=== PATIENT | female | born 1990 | race Caucasian/White ===

== ENCOUNTER 2017-11-12 07:43 | Inpatient (IN) | payer OTHER ==
[~2017-11-12] VITALS: Ht 165.1 cm; Wt 65.9 kg
[2017-11-12 08:42] VITALS: Ht 165.1 cm; Wt 65.9 kg
[2017-11-12] MEDS ORDERED: LACTATED RINGER'S 1000ML 500 ML IV PRN ×2 (09:01→18:24)
[2017-11-12] MEDS ORDERED: LACTATED RINGER'S 1000ML 1,000 ML IV PRN (09:01)
[2017-11-12] MEDS ORDERED: OXYTOCIN 30 UNITS/500ML NSS IV PRN ×2 (09:15→18:00)
[2017-11-12 09:25] LABS: HEMATOCRIT 36.5 % (37-47); MEAN CELL VOLUME 90.1 fL (80-100); MEAN CORPUSCULAR HEMOGLOBIN 29.4 pg (25-34); MEAN CORPUSCULAR HGB CONC 32.6 g/dl (32-36); MEAN PLATELET VOLUME 9.7 fL (7.4-10.4); PLATELET COUNT 208 K/uL (130-400); RED BLOOD COUNT 4.05 M/uL (4.2-5.4); WHITE BLOOD COUNT 9.64 K/uL (4.8-10.8)
[2017-11-12] MEDS ORDERED: DOXY30TA (09:30)
[2017-11-12] MEDS ORDERED: PRENTAB26 PO (09:30)
[2017-11-12] MEDS: LACTATED RINGER'S 1000ML 1,000 ML IV SCH ×2 (10:09→16:40)
[2017-11-12] MEDS ORDERED: FENTANYL 2MCG/ML ROPIV 1.25MG/ML 100ML BAG EPI ONE (14:54)
[2017-11-12] MEDS ORDERED: EpHEDrine SULFATE INJ 50 MG/ML AMP ONE (14:54)
[2017-11-12] MEDS ORDERED: BUPIVACAINE 0.25% 30 ML VIAL ONE (14:54)
[2017-11-12] MEDS ORDERED: FENTANYL CITRATE INJ 50 MCG/1 ML 2 ML VIAL ONE (14:55)
[2017-11-12] MEDS ORDERED: METHYLERGONOVINE MALEATE 0.2 MG/ML AMP ONE (17:43)
[2017-11-12] MEDS ORDERED: SUPERCREAM 0.870 % 15GM JAR EXT PRN (18:00)
[2017-11-12] MEDS ORDERED: LANOLIN OINT EXT PRN ×2 (18:00)
[2017-11-12] MEDS ORDERED: METHYLERGONOVINE MALEATE 0.2 MG/ML AMP IM ONE (18:00)
[2017-11-12] MEDS ORDERED: DIPHTHERIA/TETANUS/PERTUSSIS 0.5 ML SYR/VIAL IM. ONE (18:00)
[2017-11-12] MEDS ORDERED: HYDROCORTISONE ACETATE 25 MG SUPP PR PRN (18:00)
[2017-11-12] MEDS ORDERED: ACETAMINOPHEN 325 MG TAB PO PRN (18:00)
[2017-11-12] MEDS ORDERED: BENZOCAINE 20% AER SPR 82.5 GM CAN EXT PRN (18:00)
[2017-11-12] MEDS ORDERED: OXYCODONE/ACETAMINOPHEN 5-325 TAB PO PRN (18:00)
[2017-11-12] MEDS ORDERED: NALOXONE HCL INJ 1 MG in SODIUM CHLORIDE 0.9% 1000ML 1,000 ML IV PRN (18:24)
--- NOTE | 2017-11-12 18:27 | Anesthesia Procedure Note ---
Anesthesia Epidural Removal Nt Date & Time Nov 12, 2017 at 18:26 Vital Signs Pain Intensity: 9.0 Notes Mental Status: alert / awake / arousable, participated in evaluation Nausea / Vomiting: adequately controlled Pain: adequately controlled Airway Patency, RR, SpO2: stable & adequate BP & HR: stable & adequate Hydration State: stable & adequate Neuraxial Anesthesia: was administered Anesthetic Complications: no major complications apparent, pt satisfied with anesthetic care Epidural: removed without complications, with tip intact
[2017-11-12] MEDS ORDERED: ONDANSETRON INJ 2 MG/ML 2 ML VIAL IV PRN (18:30)
[2017-11-12] MEDS ORDERED: NALOXONE HCL INJ 0.4 MG/1 ML VIAL/CARP IV PRN (18:30)
[2017-11-12] MEDS ORDERED: NALBUPHINE HCL INJ 10 MG/ML AMP IV PRN (18:30)
[2017-11-12] MEDS ORDERED: EpHEDrine SULFATE INJ 50 MG/ML AMP IV PRN (18:30)
[2017-11-12] MEDS ORDERED: FENTANYL 2MCG/ML ROPIV 1.25MG/ML 100ML BAG EPI PRN (18:30)
[2017-11-12] MEDS ORDERED: DiphenhydrAMINE HCL 50 MG/ML VIAL IV PRN (18:30)
[2017-11-12 21:15] VITALS: BP 105/71; PULSE 97; TEMP 36.8
[2017-11-12] MEDS: IBUPROFEN 600 MG TAB PO PRN (23:10)
[2017-11-12 23:20] VITALS: BP 99/66; PULSE 68; TEMP 36.7
--- NOTE | 2017-11-13 02:37 | DELIVERY SUMMARY ---
DATE OF OPERATION: 11/12/2017 TIME OF DELIVERY: 17:39 DELIVERY OF PLACENTA: 17:41 DELIVERY NOTE: The patient is a 27-year-old 1 para 0 at 40 weeks and 4 days gestation, who was admitted to labor and delivery on the morning of 11/12/2017, for a scheduled induction of labor secondary to being postdates and gestational diabetes class A1. Her blood sugars were well controlled throughout her . On arrival, she was found to be 4 cm, 80% effaced and -1 station. heart tones were category 1. Oxytocin was begun per protocol for labor induction. She received an epidural for anesthesia. Artificial rupture of membranes was performed at 16:37 with clear amniotic fluid. She reached complete dilation at 16:02. The patient pushed to delivery at 17:39, she delivered a viable male infant to a midline episiotomy in the right occiput anterior position. The baby was placed on patient's abdomen. Cord was clamped x2 and cut. Apgars were 9 at one minute and 10 at five minutes. Please see nursing notes for further baby assessment. Cord blood was then obtained and an intact placenta with 3-vessel cord was delivered at 17:41 and sent to Pathology for examination. Oxytocin infusion was then begun. The lower uterine segment and vagina were cleared of any blood clots and debris. She was given 0.2 mg of Methergine due to uterine atony. Once there was good uterine tone, exploration of perineum noted a midline episiotomy which was repaired with 2-0 and 3-0 Vicryl sutures in a normal fashion. Excellent hemostasis was noted. No other lacerations were seen. ESTIMATED BLOOD LOSS: 400 mL. All sponge and instrument counts were found to be correct x2. Both patient and baby tolerated the delivery well and were in Recovery with stable vital signs. I attest to the content of the Intraoperative Record and any orders documented therein. Any exception s are noted below.
[2017-11-13 05:20] VITALS: BP 114/68; PULSE 84; TEMP 36.8
[2017-11-13 07:22] LABS: HEMATOCRIT 33.8 % (37-47)
[2017-11-13 07:25] VITALS: BP 93/60; PULSE 96; TEMP 36.5; O2SAT 98
[2017-11-13] MEDS: IBUPROFEN 600 MG TAB PO PRN ×2 (07:38→20:49)
[2017-11-13] MEDS: DOCUSATE SODIUM 100 MG CAP PO SCH ×2 (07:38→19:44)
[2017-11-13] MEDS: PRENATAL VITAMIN TAB PO SCH (07:38)
[2017-11-13] MEDS: FERROUS SULFATE 325 MG TAB PO SCH (07:38)
--- NOTE | 2017-11-13 08:03 | OB/GYN Progress Note ---
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 Patient is seen and examined. She feels well, no complaints. Ambulating without dizziness Voiding without difficulty Tolerating regular diet with out N&V Bleeding is minimal No fever/ chills/ CP/ SOB/ N&V/ Leg pain Breast feeding without problems Date Time Temp Pulse Resp B/P (MAP) Pulse Ox O2 Delivery O2 Flow Rate FiO2 11/13/17 05:20 36.8 84 18 114/68 (83) Room Air 11/12/17 23:20 Room Air 11/12/17 23:20 36.7 68 18 99/66 (77) Room Air 11/12/17 21:15 36.8 97 18 105/71 (82) Room Air 11/12/17 21:15 Room Air Last 24 Hours Test 11/12/17 09:16 11/13/17 07:08 White Blood Count 9.64 K/uL Red Blood Count 4.05 M/uL Hemoglobin 11.9 g/dL 11.3 g/dL Hematocrit 36.5 % 33.8 % Mean Corpuscular Volume 90.1 fL Mean Corpuscular Hemoglobin 29.4 pg Mean Corpuscular Hemoglobin Concent 32.6 g/dl RDW Standard Deviation 47.6 fL RDW Coefficient of Variation 14.3 % Platelet Count 208 K/uL Mean Platelet Volume 9.7 fL PE: General: Alert, orientedx3, NAD Abd: soft, NT, fundus firm, below Umbilicus Perineum intact, Lochia rubra minimal Ext; NT, no edema AP: 27 yo s/p , ppd# 1 VSS Afebrile doing well Continue routine care All questions were answered D/C home tomorrow
[2017-11-13] MEDS ORDERED: MAGNESIUM HYDROXIDE SUSP 30 ML UDC PO ONE (08:15)
[2017-11-13 13:00] VITALS: BP 101/69; PULSE 94; TEMP 36.6; O2SAT 98
[2017-11-13 15:45] VITALS: BP 111/75; PULSE 82; TEMP 36.7; O2SAT 99
[2017-11-13] MEDS ORDERED: BISACODYL 5 MG TABEC PO SCH (20:00)
[2017-11-14] VITALS: BP 100/63; PULSE 79; TEMP 36.6
[2017-11-14 06:54] LABS: HEMATOCRIT 32.1 % (37-47); MEAN CELL VOLUME 91.2 fL (80-100); MEAN CORPUSCULAR HEMOGLOBIN 30.1 pg (25-34); MEAN PLATELET VOLUME 9.6 fL (7.4-10.4); PLATELET COUNT 203 K/uL (130-400); RED BLOOD COUNT 3.52 M/uL (4.2-5.4); WHITE BLOOD COUNT 13.64 K/uL (4.8-10.8)
[2017-11-14] MEDS ORDERED: BISACODYL 10 MG SUPP PR PRN (07:00)
[2017-11-14] MEDS ORDERED: MTR600X PO (07:09)
[2017-11-14] MEDS ORDERED: OXYC-57 PO (07:09)
--- NOTE | 2017-11-14 07:11 | Discharge Instructions ---
Discharge Instructions Date of Service Nov 14, 2017. Admission Reason for Admission: Induction Discharge Discharge Diagnosis / Problem: Vaginal Delivery Discharge Goals Goal(s): Routine recovery after delivery Medications Continue Dispensed Medications: supercream, dermaplast, tucks, lansinoh Activity Recommendations Activity Limitations: per Instructions/Follow-up section . Instructions / Follow-Up Instructions / Follow-Up ACTIVITY RECOMMENDATIONS: * Gradual return to full activity over the next 2-3 weeks. * No lifting - nothing heavier than baby over the next 2-3 weeks. * Do not engage in vigorous exercise, sexual activity or sports until cleared by your physician. * Do not drive or operate any motorized equipment until cleared by your physician. * You may shower/bathe daily. BREAST CARE: If you are not breast feeding: * Wear a supportive bra 24 hours a day for one to two weeks. * Avoid stimulating your breasts and nipples as much as possible during the first few weeks after delivery. * When taking a shower, have the warm water hit your back, not breasts. * When your breasts feel full, apply ice packs. Usually three to four times a day helps ease the discomfort. * Take a mild pain medication (Tylenol/Motrin) when you are uncomfortable. If breast feeding: * Use breast milk to lubricate nipples. Lansinoh cream may be used for sore nipples. You do not need to remove cream prior to breast feeding. If using a different brand of cream, check the label for directions regarding removal of cream prior to nursing. * Wear a supportive bra. * If having problems with breasts or breast feeding, call a cassandra consultant or your health care provider. EPISIOTOMY CARE: After delivery, if you have an episiotomy (stitches), the following steps will ease discomfort and aid healing. * For the first 24 hours after delivery, place ice packs next to your episiotomy to help reduce swelling. * After the first 24 hour-period, sitz baths, either portable or in the tub, are suggested. A shower with a shower arm sprayed over the episiotomy may be comforting. * Radha care should be done after each voiding and bowel movement. Squirt warm water from a plastic bottle over the perineum (region of the body between the anus and urinary opening) and pat dry. * Use Dermoplast to ease discomfort. Shake container. [place] directly over the episiotomy. * Place a Tucks on a clean sanitary pad next to your episiotomy. OVER THE COUNTER MEDICATION: * For discomfort or pain, you may use Acetaminophen (Tylenol), Ibuprofen (Advil ), or Naproxen (Aleve) following the package directions. * For constipation you may use Colace following the package directions. SPECIAL CARE INSTRUCTIONS: When you are discharged from the hospital, it is important for you to follow the instructions listed below: * During the first week at home, you should be able to care for yourself and your baby. In addition, the usual light household activities are encouraged. * Limit your activities to the way you feel. Do not try to clean the house or move furniture. Be sensible. * If you actively engage in sports and have done so up until the time of your delivery, you may resume these activities as soon as you feel able. This may take up to one month or even longer. Use good judgment. * Continue to take your vitamins for at least six weeks after the of your baby. * Your diet need not be limited unless you were on a special diet before your delivery. Breast-feeding mothers need around 2500 calories per day and at least 64-80 ounces of fluid per day (8 to 10 glasses). * You should eat foods from the four major food groups. Crash diets or fad diets are to be avoided. Eating lean meats, fresh fruits and vegetables, low-fat dairy products, high fiber foods and a regular exercise program, will help you get back to your pre- weight without putting your health at risk. * Constipation is sometimes a problem after delivery. Take a mild laxative as needed. If breast feeding, Milk of Magnesia is acceptable to use. You may use a suppository or Fleets enema if no episiotomy. * A daily shower or tub bath is suggested. Be sure to thoroughly and gently dry the perineum. * A bloody vaginal discharge will usually continue until around four weeks post . A small amount of bleeding may continue for as long as six weeks. Vaginal discharge changes from the bright red bleeding after delivery to pink then brownish and finally yellowish-pink before becoming white and disappearing. * Bleeding may increase with activity. Your first period may come in 4-8 weeks. If you are breast feeding, your period may be delayed even longer. * [place] (sex) can begin whenever both you and your partner feel comfortable and do not have any form of genital infection. It is recommended that you wait until after your return appointment and discuss with your physician. If you have questions, please talk to your health care practitioner. A condom should be used to prevent infection and . * Foreplay, gentle intercourse and lubrication is very important the first several times to prevent pain. A water-based lubricant such as K-Y jelly or Astroglide may be used. * Tampons may be used six weeks after delivery. * Douching should be avoided for 6 weeks after delivery. * If you have RH negative blood and your baby is RH positive, you will receive RHOGAM by injection prior to discharge. The nurse will give you a card to keep with you that has the date and place that you received RHOGAM after delivery. * During your care, you had a Rubella screen done to check for the presence of rubella antibodies in your blood. If your test was negative, you will receive a Rubella vaccine prior to discharge. This vaccine may cause a fever, soreness at the injection site and flu-like symptoms. If these symptoms persist, notify your health care practitioner. is not advised for three months after a Rubella vaccine. There is a higher chance of having a baby with defects if conceived within three months of getting the vaccine. * If you were discharged 24 hours from delivery or before 48 hours: Visiting nurses will come to your home 48 hours after discharge to assess you and your baby. The visiting nurse will meet with you while you are in the hospital to arrange a time and get directions to your home. * Verbalizes understanding of car seat law as reviewed with patient nursing. * Car Seat hand-out given and reviewed with patient by nursing. * Shaken baby information reviewed with patient by nursing. Call you doctor if: * Heavy bleeding (saturating several pads an hour) or passing clots the size of your fist. * A fever >101 degrees F (38.3 degrees C) on two occasions four hours apart and/or chills. * Unusual pain in the pelvic or vaginal areas. * "Baby Blues" lasting longer than two weeks. If you have any questions or concerns, call your health care practitioner at . FOLLOW-UP VISIT: * Please call the office at to schedule a 6 week examination. It is important you keep this appointment. * It is important for you to make arrangements for either yearly or twice yearly check-ups thereafter. Current Hospital Diet Patient's current hospital diet: Vegetarian Diet Discharge Diet Recommended Diet: Regular OB Diet Pending Studies Studies pending at discharge: no Medical Emergencies . Who to Call and When: Medical Emergencies: If at any time you feel your situation is an emergency, please call 911 immediately. . Non-Emergent Contact Non-Emergency issues call your: Primary Care Provider, Underground [employer] Superintendent . . "Provider Documentation" section prepared by Car Toscano. . VTE Core Measure Inpt VTE Proph given/why not?: Treatment not indicated
--- NOTE | 2017-11-14 07:18 | OB/GYN Progress Note ---
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 Subjective conversation w/ patient, physical exam Ambulation: ambulating normally Voiding: no voiding problems Passing Gas: Yes Diet Tolerance: Regular Diet Lochia: Small Feeding Type: Breast Feeding Pain: 7/10 Notes: Doing well. Pain is tolerable. Tolerating regular diet. Ambulating without difficulty. Lochia moderate. Would like to go home today. Objective Vital Signs Date Time Temp Pulse Resp B/P (MAP) Pulse Ox O2 Delivery O2 Flow Rate FiO2 11/14/17 00:00 Room Air 11/14/17 00:00 36.6 79 18 100/63 (75) Room Air 11/13/17 15:45 36.7 82 18 111/75 (87) 99 Room Air 11/13/17 15:45 99 Room Air 11/13/17 13:00 36.6 94 20 101/69 (80) 98 Room Air 11/13/17 07:25 36.5 96 16 93/60 (71) 98 Room Air 11/13/17 07:25 98 Room Air Physical Exam General Appearance: WELL-APPEARING Respiratory/Chest: chest non-tender, lungs clear Cardiovascular: regular rate, rhythm Abdomen: normal bowel sounds, soft Fundus: Firm Extremities: normal range of motion, non-tender, no calf tenderness Laboratory Results Last 24 Hours Test 11/14/17 06:34 White Blood Count 13.64 K/uL Red Blood Count 3.52 M/uL Hemoglobin 10.6 g/dL Hematocrit 32.1 % Mean Corpuscular Volume 91.2 fL Mean Corpuscular Hemoglobin 30.1 pg Mean Corpuscular Hemoglobin Concent 33.0 g/dl RDW Standard Deviation 49.0 fL RDW Coefficient of Variation 14.7 % Platelet Count 203 K/uL Mean Platelet Volume 9.6 fL Assessment and Plan Post- Day Number: 2 Continue Routine Care: -D/C home today -F/U in 6 weeks.
[2017-11-14 07:45] VITALS: BP 109/78; PULSE 76; TEMP 36.6; O2SAT 98
[2017-11-14] MEDS: IBUPROFEN 600 MG TAB PO PRN ×2 (08:21→12:14)
[2017-11-14] MEDS: FERROUS SULFATE 325 MG TAB PO SCH (08:21)
[2017-11-14] MEDS: DOCUSATE SODIUM 100 MG CAP PO SCH (08:22)
[2017-11-14] MEDS: PRENATAL VITAMIN TAB PO SCH (08:22)
[2017-11-14 12:40] VITALS: BP_DIAS 78; PULSE 76; TEMP 36.6
== END 2017-11-14 12:40 | disposition home or self-care (01) | DRG 775 ==
LOC: C.LD 07:43 → C.OBG 21:02
PROVIDERS: ADMIT Obstetrics & Gynecology; ATTEND Obstetrics & Gynecology
PROC: 10E0XZZ Delivery of Products of Conception, External Approach (ICD-10-PCS; principal; 2017-11-12)
PROC: 0W8NXZZ Division of Female Perineum, External Approach (ICD-10-PCS; principal; 2017-11-12)
PROC: 3E053VJ Introduction of Other Hormone into Peripheral Artery, Percutaneous Approach (ICD-10-PCS; 2017-11-12)
DX: O24.429 Gestational diabetes mellitus in childbirth, unspecified control (principal); Z3A.40 40 weeks gestation of pregnancy; O48.0 Post-term pregnancy; O75.89 Other specified complications of labor and delivery; Z37.0 Single live birth

== ENCOUNTER 2017-12-18 20:37 | Emergency (ER) | payer OTHER ==
[~2017-12-18] VITALS: Ht 165.1 cm; Wt 57.7 kg
[~2017-12-18 20:37] MED LIST: MTR600X PO; OXYC-57 PO; PRENTAB26 PO
[2017-12-18 20:49] VITALS: Ht 165.1 cm; Wt 57.7 kg
[2017-12-18] MEDS ORDERED: ONDANSETRON INJ 2 MG/ML 2 ML VIAL IV STA (22:53)
[2017-12-18] MEDS ORDERED: SODIUM CHLORIDE 0.9% 1000ML 1,000 ML IV ONE (23:00)
[2017-12-18] MEDS ORDERED: DOCU100C PO (23:18)
[2017-12-18] MEDS ORDERED: FENU1CAP2 PO (23:18)
[2017-12-18 23:26] LABS: BASO % 0.1 %; BASO ABS # 0.01 K/uL (0-0.2); EOS % 0.9 %; HEMATOCRIT 47.3 % (37-47); IG# 0.02 K/uL (0.00-0.02); LYMPH % 8.9 %; LYMPH ABS # 1.02 K/uL (1.2-3.4); MEAN CELL VOLUME 88.6 fL (80-100); MEAN CORPUSCULAR HGB CONC 33.8 g/dl (32-36); MEAN PLATELET VOLUME 9.9 fL (7.4-10.4); MONO % 2.1 %; MONO ABS # 0.24 K/uL (0.11-0.59); NEUT % 87.8 %; NEUT ABS # 10.07 K/uL (1.4-6.5); PLATELET COUNT 184 K/uL (130-400); WHITE BLOOD COUNT 11.46 K/uL (4.8-10.8)
[2017-12-18 23:43] LABS: ALBUMIN 4.7 gm/dl (3.4-5.0); CALCIUM 9.3 mg/dl (8.5-10.1); CREATININE 0.9 mg/dl (0.60-1.20); POTASSIUM 4.2 mmol/L (3.5-5.1)
[2017-12-18 23:45] LABS: TOTAL PROTEIN 8.9 gm/dl (6.4-8.2)
[2017-12-19] MEDS ORDERED: ONDA4TAB10 SL (02:09)
[2017-12-19] MEDS ORDERED: ONDANSETRON HOME PACK 4MG OD TAB PO ONE (02:15)
[2017-12-19 02:18] VITALS: BP 128/82; PULSE 93; TEMP 36.8; O2SAT 96
--- NOTE | 2017-12-20 05:13 | EMERGENCY ROOM VISIT NOTE ---
History First contact with patient: 22:43 Chief Complaint: VOMITING Stated Complaint: THROWING UP Nursing Triage Summary: Patient reports vomiting and diarrhea since 1700 this evening. History of Present Illness The patient is a 27 year old female who presents to the Emergency Room with complaints of vomiting 7 episodes with diarrhea times one episode over the past 6 hours. The patient considers herself usually healthy without known exposure to disease. She does not have recent travel history, and believes that she may have food poisoning. She has not had fever, chills, chest pain, chest tightness, or shortness of breath. She has minimal abdominal cramping with the vomiting. She denies chance of as she gave just over 1 month ago and is breast-feeding. She has not returned to menses. She rates her overall discomfort a 4/10. Review of Systems More than 10 systems were reviewed and otherwise negative with the exception of history of present illness. Past Medical/Surgical History Medical Problems: (1) GDM, class A1 (2) Post-dates Family History No pertinent family history Social History Smoking Status: Never Smoker Housing Status: lives with family Current/Historical Medications Scheduled Docusate Sodium (Stool Softener), 100 MG PO DAILY Fenugreek (Trigonella Foenum-G (Fenugreek), 610 MG PO DAILY Multivit/Min/Iron/Fol Ac/Pren ( Vitamin), 1 TAB PO DAILY Ondasetron Odt (Zofran Odt), 4 MG SL Q6H Physical Exam Vital Signs Date Time Temp Pulse Resp B/P (MAP) Pulse Ox O2 Delivery O2 Flow Rate FiO2 12/19/17 02:18 36.8 93 18 128/82 96 12/19/17 01:06 84 18 105/75 96 Room Air 12/19/17 00:21 81 17 95 Room Air 12/18/17 23:15 74 19 99/69 93 Room Air 12/18/17 20:49 36.8 115 18 103/70 97 Room Air Physical Exam VITALS: Vitals are noted on the nurse's note and reviewed by myself. Vital signs stable. GENERAL: White female who is actively vomiting into an emesis bag on my arrival to the room MOUTH: Mucous membranes moist. Tonsils are not enlarged. Pharynx without erythema, blood, or exudate. Uvula midline. Airway patent. NECK: Supple without nuchal rigidity. No lymphadenopathy. No thyromegaly. Cervical spine is nontender. HEART: Regular rate and rhythm without murmurs gallops or rubs. LUNGS: Clear to auscultation bilaterally without wheezes, rales or rhonchi. No retractions or accessory muscle use. ABDOMEN: Positive normal bowel sounds x 4. Soft, nontender, without masses or organomegaly. No guarding or rebound tenderness. MUSCULOSKELETAL: No muscle atrophy, erythema, or edema noted. Full range of motion without joint tenderness in all extremities. Medical Decision & Procedures Laboratory Results 12/18/17 23:08 Red Blood Count 5.34, Mean Corpuscular Volume 88.6, Mean Corpuscular Hemoglobin 30.0, Mean Corpuscular Hemoglobin Concent 33.8, Mean Platelet Volume 9.9, Neutrophils (%) (Auto) 87.8, Lymphocytes (%) (Auto) 8.9, Monocytes (%) (Auto) 2.1, Eosinophils (%) (Auto) 0.9, Basophils (%) (Auto) 0.1, Neutrophils # (Auto) 10.07, Lymphocytes # (Auto) 1.02, Monocytes # (Auto) 0.24, Eosinophils # (Auto) 0.10, Basophils # (Auto) 0.01 12/18/17 23:08 Test 12/18/17 23:08 12/19/17 00:10 White Blood Count 11.46 K/uL (4.8-10.8) Red Blood Count 5.34 M/uL (4.2-5.4) Hemoglobin 16.0 g/dL (12.0-16.0) Hematocrit 47.3 % (37-47) Mean Corpuscular Volume 88.6 fL (80-100) Mean Corpuscular Hemoglobin 30.0 pg (25-34) Mean Corpuscular Hemoglobin Concent 33.8 g/dl (32-36) Platelet Count 184 K/uL (130-400) Mean Platelet Volume 9.9 fL (7.4-10.4) Neutrophils (%) (Auto) 87.8 % Lymphocytes (%) (Auto) 8.9 % Monocytes (%) (Auto) 2.1 % Eosinophils (%) (Auto) 0.9 % Basophils (%) (Auto) 0.1 % Neutrophils # (Auto) 10.07 K/uL (1.4-6.5) Lymphocytes # (Auto) 1.02 K/uL (1.2-3.4) Monocytes # (Auto) 0.24 K/uL (0.11-0.59) Eosinophils # (Auto) 0.10 K/uL (0-0.5) Basophils # (Auto) 0.01 K/uL (0-0.2) RDW Standard Deviation 42.0 fL (36.4-46.3) RDW Coefficient of Variation 13.0 % (11.5-14.5) Immature Granulocyte % (Auto) 0.2 % Immature Granulocyte # (Auto) 0.02 K/uL (0.00-0.02) Anion Gap 8.0 mmol/L (3-11) Est Creatinine Clear Calc Drug Dose 83.0 ml/min Estimated GFR () 100.1 Estimated GFR (Non- 86.4 BUN/Creatinine Ratio 14.0 (10-20) Calcium Level 9.3 mg/dl (8.5-10.1) Total Bilirubin 0.3 mg/dl (0.2-1) Aspartate Amino Transf (AST/SGOT) 22 U/L (15-37) Alanine Aminotransferase (ALT/SGPT) 32 U/L (12-78) Alkaline Phosphatase 91 U/L (45-117) Total Protein 8.9 gm/dl (6.4-8.2) Albumin 4.7 gm/dl (3.4-5.0) Globulin 4.2 gm/dl (2.5-4.0) Albumin/Globulin Ratio 1.1 (0.9-2) Lipase 154 U/L (73-393) Urine Color YELLOW Urine Appearance CLOUDY (CLEAR) Urine pH 5.0 (4.5-7.5) Urine Specific [place] 1.025 (1.000-1.030) Urine Protein NEG (NEG) Urine Glucose (UA) NEG (NEG) Urine Ketones TRACE (NEG) Urine Occult Blood 1+ (NEG) Urine Nitrite NEG (NEG) Urine Bilirubin NEG (NEG) Urine Urobilinogen NEG (NEG) Urine Leukocyte Esterase NEG (NEG) Urine WBC (Auto) 1-5 /hpf (0-5) Urine RBC (Auto) 0-4 /hpf (0-4) Urine Hyaline Casts (Auto) 1-5 /lpf (0-5) Urine Epithelial Cells (Auto) >30 /lpf (0-5) Urine Bacteria (Auto) 1+ (NEG) Urine Yeast (Auto) (NONE PRSENT) Urine Test NEG (NEG) Medications Administered Medications (Trade) Dose Ordered Sig/Alison Route Start Time Stop Time Status Last Admin Dose Admin Sodium Chloride 1,000 ml @ 999 mls/hr Q1H1M ONCE IV 12/18/17 23:00 12/19/17 00:00 DC 12/18/17 23:11 999 MLS/HR Ondansetron HCl (Zofran Inj) 8 mg NOW STAT IV 12/18/17 22:53 12/18/17 22:54 DC 12/18/17 23:11 8 MG Ondansetron HCl (ZOFRAN ODT 4MG Home Pack) 1 homepack UD ONCE PO 12/19/17 02:15 12/19/17 02:17 DC 12/19/17 02:18 1 HOMEPACK ED Course Physical exam and history were performed. Nursing notes, EMR, and Medication List were personally reviewed. Patient appears to have nausea and vomiting symptoms that started a few hours ago. On examination the patient is actively vomiting on my arrival to the room. IV access was established and labs were obtained. She was given 8 mg IV Zofran as well as IV saline. The patient blood work is as above and was reviewed. She has a minimally elevated white blood cell count of 11.5 which is felt to be secondary to her vomiting. He does not have a significant anemia, bandemia, or gross electrolyte imbalance. Urine is without evidence of infection. She is not . The patient was monitored for some time here in the department. She did not have persistent emesis after the Zofran, and overall is felt to be well for discharge home. Her symptoms likely represent a viral or foodborne etiology. I will give her a short course of Zofran to assist with symptoms at home. She is to drink plenty of fluids and follow with her primary care physician. She was otherwise invited back to the ER with any new, worsening, or concerning symptoms. The chart was completed utilizing [employer] Speech Voice Recognition Software. Grammatical errors, random word insertions, pronoun errors, and incomplete sentences are an occasional consequence of this system due to software limitations, ambient noise, and hardware issues. Any formal questions or concerns about the content, text, or information contained within the body of this dictation should be directly addressed to the provider for clarification. . Medical Decision Differential diagnosis: Etiologies such as gastroenteritis, food borne illness, infections, appendicitis , diverticulitis, inflammatory bowel disease, obstruction, GI bleed, biliary pathology, as well as others were entertained. Impression Primary Impression: Nausea and vomiting Departure Information Dispostion Home / Self-Care Condition GOOD Prescriptions Ondasetron Odt (ZOFRAN ODT) 4 Mg Tab 4 MG SL Q6H for Nausea, #12 TAB Prov: Dylan Andujar PA-C 12/19/17 Forms HOME CARE DOCUMENTATION FORM, IMPORTANT VISIT INFORMATION Patient Instructions My [facility] Additional Instructions You were seen and evaluated today on an emergency basis only. This is not a substitute for, or an effort to provide, complete comprehensive medical care. It is not possible to recognize and treat all injuries or illnesses in a single emergency department visit. For this reason it is recommended that you followup with your primary care physician in the next day or 2 for recheck. Zofran 4 mg ODT: Dissolve 1 tablet every 6 hrs as needed for nausea. Drink plenty of fluids and remain well hydrated You are welcome to return to the emergency department anytime with new, worsening, or concerning symptoms.
== END 2017-12-19 02:19 | disposition home or self-care (01) ==
LOC: C.EDB 20:38
DX: R11.2 Nausea with vomiting, unspecified (principal)

== ENCOUNTER 2019-06-25 20:49 | Inpatient (IN) ==
[2019-06-25] MEDS: LACTATED RINGER'S 1,000 ML IV PRN ×2 (21:20→22:25)
[2019-06-25] MEDS ORDERED: OXYTOCIN 30 UNITS/500 ML BAG IV PRN (21:21)
[2019-06-25] MEDS ORDERED: BUPIVACAINE 0.25% 30 ML VIAL ONE (21:24)
[2019-06-25] MEDS ORDERED: ePHEDrine sulfate 50 MG/ML AMP ONE (21:24)
[2019-06-25] MEDS ORDERED: fentaNYL citrate 100 MCG/2 ML VIAL ONE (21:24)
[2019-06-25] MEDS ORDERED: fentaNYL 2MCG/ML ROPIV 1.25MG/ML 100 ML BAG EPI ONE (21:25)
[2019-06-25 21:35] LABS: Hematocrit (blood only) 36.1 % (37-47); Hemoglobin 12.1 g/dL (12.0-16.0); Mean Corpuscular Volume 90.3 fL (80-100); Mean Platelet Volume 9.6 fL (7.4-10.4); Platelet Count 188 K/uL (130-400); RDW Coefficient of Variation 13.9 % (11.5-14.5); RDW Standard Deviation 45.8 fL (36.4-46.3); White Blood Count 12.83 K/uL (4.8-10.8)
[2019-06-25 21:37] LABS: Mean Corpuscular Hgb Conc 33.5 g/dL (32-36)
[2019-06-25] MEDS ORDERED: ePHEDrine sulfate 50 MG/ML AMP IV PRN (21:41)
[2019-06-25] MEDS ORDERED: NALOXONE HCL 1 MG in SODIUM CHLORIDE 0.9% 1000ML 1,000 ML IV PRN (21:41)
[2019-06-25] MEDS ORDERED: ONDANSETRON INJ 2 MG/ML 2 ML VIAL IV PRN (21:41)
[2019-06-25] MEDS ORDERED: NALOXONE HCL 0.4 MG/1 ML VIAL/CARP IV PRN (21:41)
[2019-06-25] MEDS ORDERED: fentaNYL 2MCG/ML ROPIV 1.25MG/ML 100 ML BAG EPI PRN (21:41)
[2019-06-25] MEDS ORDERED: NALBUPHINE HCL INJ 10 MG/ML AMP IV PRN (21:41)
[2019-06-25] MEDS ORDERED: DiphenhydrAMINE HCL 50 MG/ML VIAL IV PRN (21:41)
--- NOTE | 2019-06-25 21:42 | Anesthesiology Consultation ---
Date of Service June 25, 2019 Assessment & Plan (1) Encounter for pre-operative examination: Chart Review Chart Review: Patient NOT seen in Pre Admission Testing and Acceptable Risk for Labor Epidural Consults Requested none History Allergies Allergy/AdvReac Type Severity Reaction Status Date / Time No Known Allergies Allergy Verified 06/25/19 11:47 Medications Home Medications Medication Instructions Recorded Confirmed Last Taken vit-iron fum-folic ac 1 tab PO DAILY 06/21/19 06/25/19 06/21/19 08:00 [ Vitamin] Past Medical History Medical History Gestational diabetes Diet controlled Vaginal delivery 2016 Exercise / Class Metabolic Activity II 4-5 Yardwork/Stairs/Walk up hill Past Family History Family History Father Diabetes Past Anesthesia History No Hx of Anesthesia Complications and No Family Hx of Anesthesia Complications History of PONV No Hx of PONV and No Hx of Motion Sickness Social History Smoking Status: Never smoker Hx Alcohol Use: No Hx Substance Use: No substance use type: does not use Testing Laboratory Results 06/25/19 21:19
--- NOTE | 2019-06-25 23:16 | Labor Progress Brief Note ---
Date of Service June 25, 2019 Subjective comfortable after epidural. Patient presents to labor and delivery, [id number] complaining of contractions and spotting. Much more painful per report. On for induction tomorrow. essentially uncomplicated. she has had multiple trips to labor and delivery for over the last two weeks for contractions and now finally changing. complicated by diet controlled gdm, diagnosed because she could never complete a gtt and was unable to complete a diet 2 hr test secondary to n/v--however, patient never sent blood sugars to dietary, so have no idea about control. Initial blood sugar in the 70s labs--O+/ab-/ri/rprnr/hepb-/hiv-/declined cf/sma/genetics/gbs neg pmhx--healthy surgery--none soc-- no t/e/d. Assessment & Plan (1) Post-dates : Plan to expectantly manage. Fetus category one. Will monitor bs q 2hrs. GBS negative Physical Exam Constitutional: WD/WN, vitals as above Genitourinary: cx--on my initial exam /-2, 7cm per Dr. Tellez after epidural. arom--blood tinged fluid toco--q 3-5 min efm--130 with mod variabiltiy, accels present , no decels Results & Data Vital Signs (Past 12 Hours) Vital Signs Pulse Resp BP Pulse Ox 06/25/19 23:12 94 H 96 06/25/19 23:07 96 H 95 06/25/19 23:02 89 97 06/25/19 22:58 86 106/69 06/25/19 22:57 93 H 97 06/25/19 22:52 94 H 108/68 97 06/25/19 22:47 96 H 102/75 96 06/25/19 22:42 95 H 101/70 91 06/25/19 22:40 93 H 93 06/25/19 22:37 92 H 113/67 98 06/25/19 22:33 96 H 104/69 06/25/19 22:32 92 H 97 06/25/19 22:30 95 H 101/67 06/25/19 22:27 91 H 106/68 97 06/25/19 22:24 90 105/77 06/25/19 22:22 92 H 97 06/25/19 22:21 92 H 111/70 06/25/19 22:18 90 115/62 06/25/19 22:17 94 H 97 06/25/19 22:15 100 H 130/71 06/25/19 22:12 89 107/67 97 06/25/19 22:07 96 H 99 06/25/19 22:06 99 H 123/84 06/25/19 22:03 92 H 111/73 06/25/19 22:02 96 H 99 06/25/19 22:00 92 H 115/73 06/25/19 21:58 103 H 114/70 06/25/19 21:57 104 H 100 06/25/19 21:54 99 H 118/78 06/25/19 21:52 103 H 124/80 99 06/25/19 21:47 115 H 100 06/25/19 21:35 20
--- NOTE | 2019-06-26 00:37 | Labor Progress Brief Note ---
Date of Service June 26, 2019 Subjective comfortable Assessment & Plan (1) Post-dates : Continue current management. fetus category one. anticipate . Physical Exam Constitutional: WD/WN, vitals as above Genitourinary: cx--ant lip, c/0 toco--q2-5min efm--140s with mod variabiltiy, +accels, no decels Results & Data Vital Signs (Past 12 Hours) Vital Signs Pulse Resp BP Pulse Ox 06/26/19 00:32 96 H 98 06/26/19 00:30 99 H 91/50 L 06/26/19 00:27 96 H 95 06/26/19 00:22 97 H 96 06/26/19 00:17 99 H 98 06/26/19 00:14 93 H 111/70 06/26/19 00:12 87 98 06/26/19 00:07 88 98 06/26/19 00:02 90 98 06/25/19 23:59 96 H 100/61 06/25/19 23:57 92 H 98 06/25/19 23:52 92 H 95 06/25/19 23:47 94 H 96 06/25/19 23:44 94 H 97/61 L 06/25/19 23:42 92 H 97 06/25/19 23:37 94 H 97 06/25/19 23:32 99 H 97 06/25/19 23:27 88 95 06/25/19 23:22 89 97 06/25/19 23:17 91 H 98 06/25/19 23:14 95 H 107/74 06/25/19 23:12 94 H 96 06/25/19 23:07 96 H 95 06/25/19 23:02 89 97 06/25/19 22:58 86 106/69 06/25/19 22:57 93 H 97 06/25/19 22:52 94 H 108/68 97 06/25/19 22:47 96 H 102/75 96 06/25/19 22:42 95 H 101/70 91 06/25/19 22:40 93 H 93 06/25/19 22:37 92 H 113/67 98 06/25/19 22:33 96 H 104/69 06/25/19 22:32 92 H 97 06/25/19 22:30 95 H 101/67 06/25/19 22:27 91 H 106/68 97 06/25/19 22:24 90 105/77 06/25/19 22:22 92 H 97 06/25/19 22:21 92 H 111/70 06/25/19 22:18 90 115/62 06/25/19 22:17 94 H 97 06/25/19 22:15 100 H 130/71 06/25/19 22:12 89 107/67 97 06/25/19 22:07 96 H 99 06/25/19 22:06 99 H 123/84 06/25/19 22:03 92 H 111/73 06/25/19 22:02 96 H 99 06/25/19 22:00 92 H 115/73 06/25/19 21:58 103 H 114/70 06/25/19 21:57 104 H 100 06/25/19 21:54 99 H 118/78 06/25/19 21:52 103 H 124/80 99 06/25/19 21:47 115 H 100 06/25/19 21:35 20
[2019-06-26] MEDS ORDERED: OXYCODONE/ACETAMINOPHEN 5mg/325mg TAB PO PRN (02:29)
[2019-06-26] MEDS ORDERED: ACETAMINOPHEN 325 MG TAB PO PRN (02:29)
[2019-06-26] MEDS ORDERED: METHYLERGONOVINE MALEATE 0.2 MG/ML AMP IM STA (02:33)
--- NOTE | 2019-06-26 02:33 | Delivery Summary ---
Vaginal Delivery Summary Date of Service June 26, 2019 Vaginal Delivery Summary Pre-operative Diagnosis: at 40 weeks, labor Post-operative Diagnosis: same Procedure: epidural, arom, , second degree laceration with repair EBL: 400dd Aesthesia: epidural Procedure: The patient pushed over 2 contractions to deliver a viable female infant in dop position. the rest of the was then delivered without difficulty. The nose and mouth were bulb suctioned and the infant was placed in the maternal abdomen for drying and attention. Cord was clamped and cut at one minute of life. Cord blood and segment obtained. Placenta delivered s/i/3vc. Cervix/sulci/rectum intact. A second degree perineal laceration was repaired in the normal standard fashion. Hemostasis obtained with dilute pitocin and fundal massage. Apgars were 8/9. Mother and baby doing well at the end of the delivery. cervical prolapse noted.
[2019-06-26] MEDS ORDERED: HYDROCORTISONE ACETATE 25 MG SUPP PR PRN (04:15)
[2019-06-26] MEDS ORDERED: OXYTOCIN 30 UNITS/500 ML BAG IV PRN (04:15)
[2019-06-26] MEDS ORDERED: DIPHTHERIA/TETANUS/PERTUSSIS 0.5 ML SYR/VIAL IM ONE (04:15)
[2019-06-26] MEDS ORDERED: BISACODYL 10 MG SUPP PR PRN (04:15)
[2019-06-26] MEDS ORDERED: BENZOCAINE 20% AER SPR 82.5 GM CAN EXT PRN (04:15)
[2019-06-26] MEDS ORDERED: SUPERCREAM 0.870% 15 GM JAR EXT PRN (04:15)
[2019-06-26] MEDS: IBUPROFEN 600 MG TAB PO PRN ×3 (04:20→20:53)
--- NOTE | 2019-06-26 07:51 | Obstetrical Progress Note ---
Date of Service June 26, 2019 Assessment & Plan (1) Vaginal delivery: Doing well. Routine PP care. Day #:: 0 Subjective Ambulation: ambulating normally Voiding: no voiding problems Passing Gas:: Yes Diet Tolerance:: nausea/vomiting (had with her meal after delivery but feeling better this am.) Lochia:: Small Feeding Type:: breast feeding Physical Exam Constitutional WD/WN, vitals as above Cardiovascular Extremities: no calf tenderness and no edema Gastrointestinal (Abdomen) Inspection/Auscultation: abdomen not distended Percussion/Palpation: abdomen soft; abdomen nontender ff/nt at u Psychiatric A+Ox3, euthymic affect Results & Data Vital Signs (Past 12 Hours) Vital Signs Temp Pulse Pulse Resp BP BP Pulse Ox 06/26/19 04:15 36.9 C 80 20 106/70 97 06/26/19 04:00 36.9 C 80 20 106/70 97 06/26/19 03:59 90 117/80 06/26/19 03:57 91 H 96 06/26/19 03:52 92 H 95 06/26/19 03:47 99 H 95 06/26/19 03:44 100 H 111/73 06/26/19 03:42 102 H 96 06/26/19 03:37 101 H 96 06/26/19 03:32 100 H 96 06/26/19 03:30 20 06/26/19 03:29 90 113/74 06/26/19 03:27 87 95 06/26/19 03:22 85 96 06/26/19 03:17 93 H 95 06/26/19 03:14 81 111/72 06/26/19 03:12 91 H 96 06/26/19 03:07 98 H 96 06/26/19 03:02 99 H 97 06/26/19 03:00 20 06/26/19 02:59 100 H 115/75 06/26/19 02:57 100 H 96 06/26/19 02:52 108 H 95 06/26/19 02:47 97 H 96 06/26/19 02:45 20 06/26/19 02:42 89 97 06/26/19 02:37 97 H 98 06/26/19 02:32 102 H 99 06/26/19 02:30 20 06/26/19 02:29 98 H 118/74 06/26/19 02:27 105 H 100 06/26/19 02:22 103 H 99 06/26/19 02:17 109 H 98 06/26/19 02:15 36.8 C 20 06/26/19 02:14 114 H 116/69 06/26/19 02:12 121 H 98 06/26/19 02:07 107 H 98 06/26/19 02:02 106 H 112/62 98 06/26/19 01:57 108 H 97 06/26/19 01:52 109 H 98 06/26/19 01:47 105 H 95 06/26/19 01:45 107 H 89 L 06/26/19 01:44 108 H 105/59 L 06/26/19 01:42 95 H 99 06/26/19 01:37 99 H 83 L 06/26/19 01:32 99 H 100 06/26/19 01:27 102 H 100 06/26/19 01:24 113 H 80 L 06/26/19 01:22 104 H 98 06/26/19 01:17 106 H 97 06/26/19 01:15 103 H 88 L 06/26/19 01:14 92 H 112/60 06/26/19 01:12 36.8 C 98 H 97 06/26/19 01:07 97 H 98 06/26/19 01:02 104 H 100 06/26/19 00:59 100 H 104/58 L 06/26/19 00:57 96 H 99 06/26/19 00:52 100 H 99 06/26/19 00:47 102 H 99 06/26/19 00:44 99 H 101/61 06/26/19 00:42 94 H 99 06/26/19 00:37 95 H 98 06/26/19 00:32 96 H 98 06/26/19 00:30 99 H 91/50 L 06/26/19 00:27 96 H 95 06/26/19 00:22 97 H 96 06/26/19 00:17 99 H 98 06/26/19 00:14 93 H 111/70 06/26/19 00:12 87 98 06/26/19 00:07 88 98 06/26/19 00:02 90 98 06/25/19 23:59 96 H 100/61 06/25/19 23:57 92 H 98 06/25/19 23:52 92 H 95 06/25/19 23:47 94 H 96 06/25/19 23:44 94 H 97/61 L 06/25/19 23:42 92 H 97 06/25/19 23:37 94 H 97 06/25/19 23:32 99 H 97 06/25/19 23:27 88 95 06/25/19 23:22 89 97 06/25/19 23:17 91 H 98 06/25/19 23:14 95 H 107/74 06/25/19 23:12 94 H 96 06/25/19 23:07 96 H 95 06/25/19 23:02 89 97 06/25/19 22:58 86 106/69 06/25/19 22:57 93 H 97 06/25/19 22:52 94 H 108/68 97 06/25/19 22:47 96 H 102/75 96 06/25/19 22:42 95 H 101/70 91 06/25/19 22:40 93 H 93 06/25/19 22:37 92 H 113/67 98 06/25/19 22:33 96 H 104/69 06/25/19 22:32 92 H 97 06/25/19 22:30 95 H 101/67 06/25/19 22:27 91 H 106/68 97 06/25/19 22:24 90 105/77 06/25/19 22:22 92 H 97 06/25/19 22:21 92 H 111/70 06/25/19 22:18 90 115/62 06/25/19 22:17 94 H 97 06/25/19 22:15 100 H 130/71 06/25/19 22:12 89 107/67 97 06/25/19 22:07 96 H 99 06/25/19 22:06 99 H 123/84 06/25/19 22:03 92 H 111/73 06/25/19 22:02 96 H 99 06/25/19 22:00 92 H 115/73 06/25/19 21:58 103 H 114/70 06/25/19 21:57 104 H 100 06/25/19 21:54 99 H 118/78 06/25/19 21:52 103 H 124/80 99 06/25/19 21:47 115 H 100 06/25/19 21:35 20
--- NOTE | 2019-06-26 08:37 | Anesthesia Procedure Note ---
Date of Service June 26, 2019 Anesthesia Post Epidural Note Vital Signs Vital Signs: Temp Pulse Resp BP Pulse Ox 37.2 C 66 18 100/66 99 06/26/19 08:00 06/26/19 08:00 06/26/19 08:00 06/26/19 08:00 06/26/19 08:00 Pain Intensity Abdomen: Pain Intensity: 3 Notes Mental Status: alert / awake / arousable and participated in evaluation Nausea / Vomiting: adequately controlled Pain: adequately controlled Airway Patency, RR, SpO2: stable & adequate BP & HR: stable & adequate Hydration State: stable & adequate Neuraxial Anesthesia: was administered and sensory block is resolving Anesthetic Complications: no major complications apparent and Pt Satisfied with anesthetic care Epidural: Removed without complications and With tip intact
[2019-06-26] MEDS: DOCUSATE SODIUM 100 MG CAP PO SCH ×2 (08:41→20:51)
[2019-06-26] MEDS: PRENATAL VITAMIN 1 TAB PO SCH (08:41)
--- NOTE | 2019-06-27 07:43 | Obstetrical Progress Note ---
Date of Service <Lillian Crowe MD - Last Filed: 06/27/19 07:43> June 27, 2019 Assessment & Plan <Lillian Crowe MD - Last Filed: 06/27/19 07:43> (1) Vaginal delivery: (2) GDM, class A1: (3) Encounter for care and examination after delivery: PPD1 after on 06/26 complicated by GDM. Doing well this morning, pain 3-4 controlled with motrin. Still experiencing uterine cramping. Some tenderness at rest in both calves, right leg more tender to palpation on exam; janet's +. US doppler ordered for Rt calf. Subjective <Lillian Crowe MD - Last Filed: 06/27/19 07:43> Ambulation: limited ambulation Voiding: no voiding problems Passing Gas:: Yes Diet Tolerance:: regular diet Lochia:: Small Feeding Type:: breast feeding Current Pain Level(1-10): 4 Has passed gas, no BM yet. Lochia present but decreasing in volume. Constitutional: + fatigue; no fever and no chills Respiratory: no cough and no dyspnea No shortness of breath Cardiovascular: + edema and + calf pain; no chest pain and no syncope Breast: + breast pain Gastrointestinal: + cramping; no abdominal pain, no nausea, no vomiting, no constipation and no diarrhea/loose stools Genitourinary (female): + dysuria; no difficulty urinating Neurologic: + headache(s) Physical Exam <Lillian Crowe MD - Last Filed: 06/27/19 07:43> Constitutional well developed and well nourished Respiratory normal respiratory effort; no respiratory distress, no labored breathing and no cough Auscultation: no crackles, no rales, no rhonchi and no wheezes Cardiovascular Rate/Rhythm: regular rate and regular rhythm Heart Sounds: no gallop, no murmur and no cardiac rub Extremities: + calf tenderness and + pedal edema Rt calf tender/painful to palpation, janet's sign +, left calf less tender, janet's negative Gastrointestinal (Abdomen) Inspection/Auscultation: + abdomen distended and normal bowel sounds Percussion/Palpation: + abdomen tender and abdomen soft; no guarding Genitourinary Uterus firm, palpable at umbilicus, some tenderness to palpation. Results & Data <Lillian Crowe MD - Last Filed: 06/27/19 07:43> Vital Signs (Past 12 Hours) Vital Signs Temp Pulse Resp BP Pulse Ox 06/27/19 04:45 36.6 C 89 18 106/50 L 98 06/27/19 01:10 36.6 C 92 H 16 130/70 06/26/19 21:20 36.7 C 75 18 110/72 <Pepito Tellez MD - Last Filed: 06/27/19 08:55> Co-Signing Physician Notes Patient seen and evaluated and agree with the above findings and plan. LE Doppler pending
[2019-06-27] MEDS: DOCUSATE SODIUM 100 MG CAP PO SCH (08:49)
[2019-06-27] MEDS: PRENATAL VITAMIN 1 TAB PO SCH (08:49)
--- NOTE | 2019-06-27 10:31 | Ultrasound Report ---
ULTRASOUND RIGHT LOWER EXTREMITY VENOUS CLINICAL HISTORY: Right calf pain. 1 day . COMPARISON STUDY: No priors. TECHNIQUE: Real-time, grayscale, and color Doppler sonography of the deep veins of the right lower ex tremity was performed from the inguinal crease to the calf. Compression and augmentation were utilize d. FINDINGS: There is no sonographic evidence of deep venous thrombosis identified in the right lower ex tremity. The common femoral, superficial femoral, and popliteal veins are patent and normally sotero sible. The greater saphenous vein and the profunda femoris vein at the junction with the common femor al vein are clear. The visualized calf veins are patent. IMPRESSION: There is no sonographic evidence of deep venous thrombosis identified in the right lower extremity. Electronically signed by: Mitul Gan M.D. 06/27/2019 10:29 AM
--- NOTE | 2019-06-27 12:39 | Obstetrical Progress Note ---
Date of Service June 27, 2019 Assessment & Plan (1) Encounter for care and examination after delivery: pt with neg duplex le and now wants to go home. order placed. Results & Data Vital Signs (Past 12 Hours) Vital Signs Temp Pulse Resp BP Pulse Ox 06/27/19 08:00 97.7 F 89 18 105/67 06/27/19 04:45 97.9 F 89 18 106/50 L 98 06/27/19 01:10 97.9 F 92 H 16 130/70
[2019-06-27 14:16] LABS: Hematocrit (blood only) 32.8 % (37-47); Hemoglobin 11.1 g/dL (12.0-16.0)
[2019-06-27] MEDS ORDERED: BISACODYL 5 MG TABEC PO SCH (20:00)
== END 2019-06-27 14:00 | disposition home or self-care (01) | DRG 807 ==
LOC: OPB 20:49 → 4S1 20:49 → 4S2 06-26 04:33